=== PATIENT | female | born 1940 | race Caucasian/White ===

== ENCOUNTER 2017-03-15 08:24 | Emergency (ER) | payer OTHER ==
[~2017-03-15] VITALS: Ht 149.9 cm; Wt 64.7 kg
[~2017-03-15 08:24] MED LIST: ALPRAZOLAM0.5 MG PO; ASPERDRINK81 MG PO; ASPIR-LOW81 M1 PO; ASPIR-TRIN325 M1 PO; Aspirin E.C. PO; CELEXA20 MG PO; CITALOPRAM HBR20 M1 PO; DILAUDID2 MG PO; FLOMAX0.4 MG PO; GLUCOPHAGE500 MG PO; GLUCOSAMIN-CHO1 EACH PO; Glucophage PO; Glucosamine Sulfate PO; KEFLEX500 MG PO; LOW DOSE ASPIRI81 M1 PO; NORVASC5 MG PO; Norvasc PO; PLAVIX75 MG PO; PREMARIN0.3 MG PO; PREMARIN0.625 MG PO; PRILOSEC40 MG PO; PYRIDIUM100 MG PO; Plavix PO; SYNTHROID50 MCG PO; Tylenol Extra Streng PO; VITAMIN D2000 INTUN PO; Vitamin D PO; XANAX0.25 MG PO; XANAX0.5 MG PO; Xanax PO; ZOCOR20 MG PO; ZOFRAN4 MG PO; Zocor PO; celeXA PO
[2017-03-15 09:13] LABS: HEMATOCRIT 37.7 % (36.0-46.0); MCH 30.7 PG (29.0-34.0); MCHC 32.4 G/DL (30.0-36.0); MEAN PLAT.VOLUME 9.8 uM^3 (9.5-12.4); PLATELET COUNT 265 K/uL (156-360); RBC DIS.WIDTH-CV 14.3 % (11.8-14.6); RBC DIS.WIDTH-SD 49.7 % (39-53); RED BLOOD COUNT 3.97 M/uL (3.80-5.20); WHITE BLOOD COUNT 7.7 K/uL (4.1-10.2)
[2017-03-15 09:24] LABS: CHLORIDE 104 mEq/L (99-109); POTASSIUM 4.2 mEq/L (3.7-5.4); SODIUM 140 mEq/L (136-147)
[2017-03-15 09:26] LABS: GLUCOSE 112 mg/dL (70-99)
[2017-03-15 09:28] LABS: ANION GAP 11 MEQ/L (2-14); TOTAL BILIRUBIN 0.3 mg/dL (0.0-1.0)
[2017-03-15 09:30] LABS: ALKALINE PHOSPHATASE 60 IU/L (3-129); GFR ESTIMATE (CALCULATED) > 59 mL/min/
[2017-03-15 09:31] LABS: UREA NITROGEN (BUN) 14 mg/dL (9-23)
[2017-03-15 10:55] LABS: ADD MIUA? YES; BILIRUBIN NEGATIVE; BLOOD SMALL; COLOR COLORLESS ((YELLOW)); GLUCOSE (STRIP) NEGATIVE; KETONES NEGATIVE; LEUKOCYTES NEGATIVE; NITRITE NEGATIVE; PROTEIN (STRIP) NEGATIVE; SPECIFIC GRAVITY 1.016 (1.000-1.030); UROBILINOGEN 0.2 MG/DL (0.2-1.0)
[2017-03-15 11:06] LABS: BACTERIA NONE SEEN /HPF; EPITHELIAL CELLS NONE SEEN /HPF; MUCUS NONE SEEN /LPF; RED BLOOD CELLS 0-5 /HPF (0-5); UCUL ADDED? NO; WHITE BLOOD CELLS 0-5 /HPF (0-5)
[2017-03-15] MEDS ORDERED: ZOFRAN4 MG PO (11:19)
[2017-03-15] MEDS ORDERED: PERCOCET 5/31 TABLET PO (11:19)
[2017-03-15] MEDS ORDERED: NAPROSYN500 MG PO (11:19)
[2017-03-15] MEDS ORDERED: FLOMAX0.4 MG PO (11:20)
[2017-03-15 11:45] VITALS: BP 113/66
== END 2017-03-15 11:45 | disposition home or self-care (01) ==
LOC: EME 08:24
PROVIDERS: Nurse Practitioner Family
DX: N20.0 Calculus of kidney (principal); Z87.442 Personal history of urinary calculi; E11.9 Type 2 diabetes mellitus without complications; I10 Essential (primary) hypertension; K21.9 Gastro-esophageal reflux disease without esophagitis; E78.5 Hyperlipidemia, unspecified; F41.9 Anxiety disorder, unspecified; F32.9 Major depressive disorder, single episode, unspecified; Z85.850 Personal history of malignant neoplasm of thyroid; Z79.84 Long term (current) use of oral hypoglycemic drugs; Z79.82 Long term (current) use of aspirin
CPT/HCPCS: 74177; 80053; 81003; 85027; 99281; 99285; J1885; J2270; J2405; J7030

== ENCOUNTER → 2017-03-17 | Outpatient (CLI) | payer MEDICARE, OTHER ==
[~2017-03-17] MED LIST changes: +NAPROSYN500 MG PO; +PERCOCET 5/31 TABLET PO
== END | disposition home or self-care (01) ==
LOC: CDC 11:15
DX: Z01.810 Encounter for preprocedural cardiovascular examination (principal); N20.0 Calculus of kidney; R94.31 Abnormal electrocardiogram [ECG] [EKG]
CPT/HCPCS: 93000